=== PATIENT | female | born 1950 | race Caucasian/White ===

== ENCOUNTER → 2018-01-31 09:03 | Outpatient (CLI) | payer OTHER, SELFPAY ==
[2018-01-31 09:15] LABS: Bacteria 0 SEEN /hpf (None Seen); Mucous, Urine 0 SEEN /hpf (<or=2+); Red Blood Cells-Urine 0 SEEN /hpf (0-5); White Blood Cells 0 SEEN /hpf (0-5)
[2018-01-31 09:43] LABS: Color, Urine Yellow (Yellow); Glucose, Dipstick Normal (Normal); Ketone-Dipstick Negative (Negative); Leukocyte Esterase-Dipstick 25 /ul (Negative); Nitrite-Dipstick Negative (Negative); Occult Blood-Urine Negative /ul (Negative); Protein-Dipstick Negative (Negative); Specific Gravity, Urine 1.015 (1.002-1.030); Urine Bilirubin Dipstick Negative (Negative); Urine Clarity Clear (Clear); Urine Urobilinogen Normal (Normal)
[2018-01-31 09:45] LABS: Absolute Lymphocyte Count 2.15 X10^3/ul (0.83-4.51); Absolute Neutrophil Count 2.1 X10^3/uL (2.0-7.7); Basophil# 0.04 X10^3/uL; Basophil% 0.8 % (0-1); Eosinophil# 0.13 X10^3/uL; Eosinophils% 2.6 % (0-5); Hematocrit 46.5 % (37-47); Hemoglobin 15.1 g/dl (12.0-15.0); Lymphocyte # 2.15 X10^3/ul (4.0); Lymphocyte % 42.6 % (19-41); Mean Corp Hgb Conc 32.5 g/gl (32-36); Mean Corpuscular Hgb 30.6 pg (27.0-32.0); Mean Corpuscular Volume 94.1 fL (81-99); Mean Platelet Vol. 9.2 fl (6.2-12.0); Monocyte# 0.63 X10^3/uL; Monocyte% 12.5 % (0-10); Neutrophil % 41.5 % (47-70); Platelet Count 307 K/mm3 (150-450); RBC Distribution Width CV 12.7 % (11.6-14.6); Red Blood Count 4.94 M/mm3 (4.2-5.4); White Blood Count 5.1 K/mm3 (4.4-11.0)
[2018-01-31 09:49] LABS: POSITIVE COUNT NO; POSITIVE DIFFERENTIAL NO; POSITIVE MORPHOLOGY NO
[2018-01-31 09:58] LABS: Squamous Epithelial Cells - UA 0-5 SEEN /hpf (5-10)
[2018-01-31 10:04] LABS: Microalbumin,Random Urine 6.1 mg/L (NO RANGE EST.); Microalbumin:Creatinine Ratio 4.6 mg/g CRE (<30 mg/g CRE)
[2018-01-31 10:18] LABS: AST(SGOT) 19 U/L (15-37); Alanine Aminotransfer ALT/SGPT 34 U/L (13-56); Albumin, Serum 3.9 g/dL (3.2-5.0); Alkaline Phosphatase 51 U/L (45-117); Anion Gap 5 (5-15); BUN 12 mg/dL (7-18); BUN/Creat Ratio 15.3 RATIO (10-20); Calcium,Total 9.1 mg/dL (8.5-10.1); Chloride 103 mmol/L (98-107); Creatinine, Serum 0.79 mg/dL (0.55-1.02); EST Glomerular Filtration Rate 78 mL/min (>60); Est Glom Filt Rate - Afr Amer 94 mL/min (>60); Globulin 3.9 g/dL (2.2-4.2); Glucose 85 mg/dL (74-106); Potassium 4.5 mmol/L (3.5-5.1); Protein, Total 7.8 g/dL (6.4-8.2); Sodium Level 138 mmol/L (136-145); Thyroid Stim Hormone (TSH) 1.96 uIU/mL (0.358-3.74)
[2018-02-03 12:08] LABS: CHOLESTEROL TOTAL 160 mg/dL (100-199); HDL-C 40 mg/dL (>39); HDL-P TOTAL 29.9 umol/L (>=30.5); SMALL LDL-P 828 nmol/L (<=527); TRIGLYCERIDES 177 mg/dL (0-149)
[2018-02-04 10:29] LABS: LDL SIZE 19.9 nm (>20.5); LDL-C 85 mg/dL (0-99); LDL-P 1241 nmol/L (<1000); LP-IR SCORE ** 83 (<=45)
== END ==
PROVIDERS: Family Provider Internal Medicine; PCP Internal Medicine; Referring Provider Internal Medicine; Visit Provider Internal Medicine
DX: I10 Essential (primary) hypertension (principal); E78.5 Hyperlipidemia, unspecified; E56.9 Vitamin deficiency, unspecified; F41.9 Anxiety disorder, unspecified
CPT/HCPCS: 36415; 80053; 80061; 81001; 82043; 82306; 82570; 83704; 84443; 85025

== ENCOUNTER → 2018-10-15 | Outpatient (CLI) | payer OTHER, SELFPAY ==
[2018-09-22 09:08] VITALS: BMI 28.7
--- NOTE | 2018-10-15 10:47 | ECHOD_ITS ---
Reason For Study: HYPERTENSION Procedure This was a 2D Doppler, Color Flow transthoracic echocardiogram. Exam performed in department. Left Ventricle Normal LV size. Left ventricular systolic function is normal. The estimated ejection fraction is 60 %. Stage 1 diastolic dysfunction. No regional wall motion abnormalities noted. Right Ventricle Normal RV size. Normal systolic function. Atria Normal left atrium. Normal right atrium. Mitral Valve Normal mitral valve. Tricuspid Valve Normal tricuspid valve. Mild tricuspid valve insufficiency. Pulmonary artery systolic pressure is 35 mmHg. Aortic Valve Normal aortic valve. Trisinus/trileaflet aortic valve. Pulmonic Valve Normal pulmonic valve. Great Vessels Normal aortic root. The pulmonary artery is normal size. Normal inferior vena cava. Pericardium/Pleural No pericardial effusion. MMode/2D Measurements & Calculations LVIDd: 4.4 cm IVSd: 0.65 cm Ao root diam: 3.1 cm LVIDs: 3.0 cm LVPWd: 0.73 cm RVDd: 3.0 cm FS: 32.9 % LAV(MOD-bp): 38.5 ml LVAd ap4: 27.6 cm2 SV(MOD-sp4): 46.0 ml LAV(MOD-bp) Indexed: 22.4 ml/m2 EDV(MOD-sp4): 80.0 ml LAV(MOD-sp2): 37.2 ml EDV(sp4-el): 83.9 ml LAV(MOD-sp4): 37.4 ml LVAs ap4: 16.7 cm2 ESV(MOD-sp4): 34.0 ml ESV(sp4-el): 35.1 ml EF(MOD-sp4): 57.5 % EF(sp4-el): 58.2 % SV(sp4-el): 48.8 ml LA A4 area: 14.9 cm2 LA dimension(2D): 3.4 cm RA A4 area: 11.4 cm2 Time Measurements MV dec time: 0.20 sec Doppler Measurements & Calculations MV E max joaquim: 64.3 cm/sec Lat Peak E' Joaquim: 11.1 cm/sec Med Peak E' Joaquim: 7.8 cm/sec MV A max joaquim: 82.1 cm/sec E/E' lat: 5.8 E/E' med: 8.3 MV E/A: 0.78 Ao V2 max: 143.4 cm/sec LV V1 max: 105.9 cm/sec PA V2 max: 95.6 cm/sec Ao max P.2 mmHg LV V1 max P.5 mmHg TR max joaquim: 276.1 cm/sec TR max P.5 mmHg Interpretation Summary Normal LV size. Left ventricular systolic function is normal. The estimated ejection fraction is 60 %. Stage 1 diastolic dysfunction. Mild tricuspid valve insufficiency. Ordering Physician: Rudi Perez Referring Physician: IRISH BERMUDEZ Performed By: Kinjal Wallace RDCS
== END | disposition home or self-care (01) ==
LOC: CVS 10:46
PROVIDERS: Family Provider Internal Medicine; PCP Internal Medicine; Referring Provider Internal Medicine Cardiovascular Disease; Visit Provider Internal Medicine Cardiovascular Disease
DX: I51.81 Takotsubo syndrome (principal); I10 Essential (primary) hypertension
CPT/HCPCS: 93306

== ENCOUNTER → 2022-11-07 | Outpatient (CLI) | payer MEDICARE, OTHER, SELFPAY ==
--- NOTE | 2022-11-07 10:43 | ECHOD_ITS ---
Reason For Study: HTN, [place] Procedure This was a 2D Doppler, Color Flow transthoracic echocardiogram. Exam performed in department. Left Ventricle Normal LV size. The left ventricular ejection fraction is 55 %. Stage 1 diastolic dysfunction. [place] : Hypokinetic. Right Ventricle Normal RV size. Normal systolic function. Atria Normal left atrium. Normal right atrium. Mitral Valve Normal mitral valve. There is mild mitral annular calcification. Tricuspid Valve Normal tricuspid valve. Mild (1+) tricuspid valve insufficiency. Pulmonary artery systolic pressure is 36 mmHg. Aortic Valve Trisinus/trileaflet aortic valve. Pulmonic Valve Normal pulmonic valve. Great Vessels Normal aortic root. The pulmonary artery is normal size. Normal inferior vena cava. Pericardium/Pleural No pericardial effusion. MMode/2D Measurements & Calculations LVIDd: 5.2 cm IVSd: 0.91 cm Ao root diam: 3.2 cm LVIDs: 3.8 cm LVPWd: 0.96 cm FS: 27.6 % LAV(MOD-bp): 52.0 ml LVAd ap4: 30.9 cm2 LVAd ap2: 28.2 cm2 LAV(MOD-bp) Indexed: 30.1 ml/m2 LVLd ap4: 7.9 cm LVLd ap2: 7.5 cm LAV(MOD-sp2): 55.1 ml EDV(MOD-sp4): 98.4 ml EDV(MOD-sp2): 88.1 ml LAV(MOD-sp4): 47.6 ml EDV(sp4-el): 103.3 ml EDV(sp2-el): 90.0 ml LVAs ap4: 19.0 cm2 LVAs ap2: 16.6 cm2 LVLs ap4: 6.8 cm LVLs ap2: 6.3 cm ESV(MOD-sp4): 42.9 ml ESV(MOD-sp2): 38.8 ml ESV(sp4-el): 45.0 ml ESV(sp2-el): 37.5 ml EF(MOD-sp4): 56.4 % EF(MOD-sp2): 56.0 % EF(sp4-el): 56.5 % SV(MOD-sp4): 55.5 ml SV(MOD-sp2): 49.3 ml SV(sp4-el): 58.4 ml TAPSE: 2.8 cm LA A4 area: 17.9 cm2 RA A4 area: 13.4 cm2 Time Measurements MV dec time: 0.21 sec Doppler Measurements & Calculations MV E max joaquim: 70.5 cm/sec Lat Peak E' Joaquim: 12.1 cm/sec Med Peak E' Joaquim: 7.8 cm/sec MV A max joaquim: 90.5 cm/sec E/E' lat: 5.8 E/E' med: 9.1 MV E/A: 0.78 MV dec slope: 332.7 cm/sec2 Ao V2 max: 131.8 cm/sec LV V1 max: 108.9 cm/sec Ao max P.0 mmHg LV V1 max P.7 mmHg Ao V2 mean: 84.5 cm/sec LV V1 mean P.3 mmHg Ao mean P.2 mmHg LV V1 mean: 72.7 cm/sec Ao V2 VTI: 28.8 cm LV V1 VTI: 24.9 cm AV (velocity ratio): 0.87 PA V2 max: 112.0 cm/sec TR max joaquim: 287.9 cm/sec TR max P.2 mmHg ECHO/Echo Complete Interpretation Summary The left ventricular ejection fraction is 55 %. [place] : Hypokinetic. Stage 1 diastolic dysfunction. Pulmonary artery systolic pressure is 36 mmHg. Ordering Physician: Rudi Perez Referring Physician: Katherine Schmidt Performed By: Estefani Milton RVT, RDCS and Student
== END | disposition home or self-care (01) ==
LOC: CVS 10:42
PROVIDERS: PCP Internal Medicine; Referring Provider Internal Medicine Cardiovascular Disease; Visit Provider Internal Medicine Cardiovascular Disease
DX: I51.81 Takotsubo syndrome (principal)
CPT/HCPCS: 93306

== ENCOUNTER → 2024-04-20 | Outpatient (CLI) | payer MEDICARE, OTHER, SELFPAY ==
--- NOTE | 2024-04-20 10:55 | BD_ITS ---
STUDY: DUAL ENERGY X-RAY ABSORPTIOMETRY / DXA REASON FOR EXAM: Female, 73 years old. 733.90OsteopeniaBONE DENSITY REASON FOR EXAM -- Osteopenia TECHNIQUE: Bone Mineral Density (BMD) measurements of lumbar spine and bilateral hips were obtained. COMPARISON: Comparison is made with prior study dated October 01, 2016. FINDINGS: Lumbar Spine (L1-L4): g/cm2 (0.894) / T-score (-1.7) / Z-score (0.7) Findings are suggestive of osteopenia with a moderate fracture risk. Left Femur Total: g/cm2 (0.795) / T-score (-1.2) / Z-score (0.4) Left Femoral Neck: g/cm2 (0.611) / T-score (-2.1) / Z-score (-0.2) Right Femur Total: g/cm2 (0.765) / T-score (-1.5) / Z-score (0.2) Right Femoral Neck: g/cm2 (0.655) / T-score (-1.8) / Z-score (0.2) The T-Scores on the most recent prior examination were: Lumbar Spine (L1-L4): There has been worsening of bone density since the previous examination. Left Femur Total: which represents a worsening of 0.9%. Right Femur Total: which represents a worsening of 8.5%. BD/Dexa Bone Density Study IMPRESSION: The patient is considered osteopenic as outlined below according to World [employer] Organization (WHO) criteria with a high fracture risk. There has been worsening of bone density since the previous examination. Reference Information: The T-score is the number of standard deviations above or below the standard which is normal for young adults at their peak bone mineral density. The World Health Organization (WHO) interprets the T-scores as follows: Above -1 Normal bone density Between -1 and -2.5 Osteopenia Equal to / or below -2.5 Osteoporosis As a practical clinical guideline, osteopenia may be graded as follows: Mild -1 through -1.5 Moderate -1.6 through -2.0 Severe -2.1 through -2.4 The Z-score is the number of standard deviations above or below age-matched controls. A Z-score of less than -1.5 would be considered abnormal. References: 1. NIH Osteoporosis and Related Bone Diseases www osteo.org 2. International Society for Clinical Densitometry www iscd.org 3. National Osteoporosis Foundation www nof.org Electronically Signed: Roosevelt Guillory MD at 15:25 EST ,
== END | disposition home or self-care (01) ==
LOC: OPBD 10:49
PROVIDERS: PCP Internal Medicine; Referring Provider Internal Medicine; Visit Provider Internal Medicine
DX: M85.89 Other specified disorders of bone density and structure, multiple sites (principal)
CPT/HCPCS: 77080

== ENCOUNTER → 2024-04-27 | Outpatient (CLI) | payer MEDICARE, OTHER, SELFPAY ==
[2024-04-27 09:18] LABS: Bacteria 0 SEEN /hpf (None Seen)
[2024-04-27 09:45] LABS: Absolute Lymphocyte Count 2.19 X10^3/uL (0.83-4.51); Absolute Neutrophil Count 2.4 X10^3/uL (2.0-7.7); Basophil# 0.06 X10^3/uL; Basophil% 1.1 % (0-1); Eosinophil# 0.18 X10^3/uL; Eosinophils% 3.3 % (0-5); Hematocrit 48.2 % (37-47); Hemoglobin 15.9 g/dL (12.0-15.0); Lymphocyte # 2.19 X10^3/ul (0.83-4.51); Mean Corpuscular Hgb 31.2 pg (27.0-32.0); Mean Corpuscular Volume 94.7 fL (81-99); Mean Platelet Vol. 8.8 fl (6.2-12.0); Monocyte# 0.65 X10^3/uL; Monocyte% 11.9 % (0-10); NRBC Flagged by Analyzer 0 % (0-5); Neutrophil # 2.39 X10^3/uL (2.7-7.7); Neutrophil % 43.5 % (47-70); Platelet Count 315 K/mm3 (150-450); RBC Distribution Width CV 12.3 % (11.6-14.6); RBC Distribution Width SD 42.8 fl (35.1-43.9); Red Blood Count 5.09 M/mm3 (4.2-5.4); White Blood Count 5.5 K/mm3 (4.4-11.0)
[2024-04-27 09:59] LABS: Color, Urine Yellow (Yellow); Glucose, Dipstick Normal (Normal); Ketone-Dipstick Negative (Negative); Leukocyte Esterase-Dipstick 100 /ul (Negative); Nitrite-Dipstick Negative (Negative); Occult Blood-Urine 10 /ul (Negative); Protein-Dipstick 15 mg/dl (Negative); Urine Bilirubin Dipstick Negative (Negative); Urine Clarity Clear (Clear); Urine Urobilinogen Normal (Normal); Urine pH 6.5 (5.0 - 8.0)
[2024-04-27 10:08] LABS: Microalbumin,Random Urine 12.3 mg/L (NO RANGE EST.); Mucous, Urine 1+ /hpf (<or=2+); Red Blood Cells-Urine 0-5 SEEN /hpf (0-5); Squamous Epithelial Cells - UA 0-5 SEEN /hpf (5-10); White Blood Cells 0-5 SEEN /hpf (0-5)
[2024-04-27 10:10] LABS: Vitamin D,25 Hydroxy 87.7 ng/mL
[2024-04-27 10:18] LABS: ALB/GLOB Ratio 0.9 RATIO (0.9-2.4); AST(SGOT) 19 U/L (15-37); Alanine Aminotransfer ALT/SGPT 30 U/L (13-56); Albumin, Serum 3.9 g/dL (3.2-5.0); Alkaline Phosphatase 55 U/L (45-117); Anion Gap 6 (5-15); BUN 11 mg/dL (7-18); BUN/Creat Ratio 14.1 RATIO (10-20); Chloride 103 mmol/L (98-107); Cholesterol 163 mg/dL (200); Creatinine, Serum 0.78 mg/dL (0.55-1.02); EST Glomerular Filtration Rate 77 mL/min (>60); Est Glom Filt Rate - Afr Amer 93 mL/min (>60); Globulin 4.2 g/dL (2.2-4.2); Glucose 91 mg/dL (74-106); High Density Lipoprotein 50 mg/dL; Potassium 4.4 mmol/L (3.5-5.1); Protein, Total 8.1 g/dL (6.4-8.2); Sodium Level 140 mmol/L (136-145); Triglycerides 164 mg/dL; Very Low Density Lipoprotein 33 mg/dL (5-40)
== END | disposition home or self-care (01) ==
LOC: LAB 09:13
PROVIDERS: PCP Internal Medicine; Referring Provider Internal Medicine; Visit Provider Internal Medicine
DX: I10 Essential (primary) hypertension (principal); E78.5 Hyperlipidemia, unspecified; E55.9 Vitamin D deficiency, unspecified
CPT/HCPCS: 36415; 80053; 80061; 81001; 82043; 82306; 82570; 84443; 85025